=== PATIENT | male | born 1995 | race Caucasian/White ===

== ENCOUNTER 2017-01-26 10:12 | Emergency (ER) | payer MEDICAID ==
[~2017-01-26] VITALS: Ht 170.2 cm; Wt 130.0 kg
[2017-01-26 10:32] VITALS: BP 152/69
[2017-01-26] MEDS ORDERED: KETOROLAC TROMETHAMINE 60 MG/2 ML VIAL IM ONE (11:30)
== END 2017-01-26 11:59 | disposition home or self-care (01) ==
LOC: EMS 10:14
DX: S13.4XXA Sprain of ligaments of cervical spine, initial encounter (principal); X58.XXXA Exposure to other specified factors, initial encounter; Y93.89 Activity, other specified; Y92.89 Other specified places as the place of occurrence of the external cause; Y99.8 Other external cause status; I88.9 Nonspecific lymphadenitis, unspecified
CPT/HCPCS: 99283

== ENCOUNTER 2017-01-28 11:20 | Emergency (ER) | payer MEDICAID ==
[~2017-01-28] VITALS: Ht 170.2 cm; Wt 130.0 kg
[2017-01-28] MEDS ORDERED: AMOX250L PO (11:25)
[2017-01-28] MEDS ORDERED: DIAZ10 PO (11:25)
[2017-01-28 13:30] VITALS: BP 142/87
== END 2017-01-28 14:02 | disposition home or self-care (01) ==
LOC: EMS 11:22
DX: L73.9 Follicular disorder, unspecified (principal); R03.0 Elevated blood-pressure reading, without diagnosis of hypertension; M54.2 Cervicalgia
CPT/HCPCS: 99283

== ENCOUNTER 2017-01-31 19:48 | Emergency (ER) | payer MEDICAID ==
[~2017-01-31] VITALS: Ht 167.6 cm; Wt 130.0 kg
[~2017-01-31 19:48] MED LIST: AMOX250L PO; DIAZ10 PO
[2017-01-31] MEDS ORDERED: SULFAMETHOX/TRIMETH DS 800-160 MG/TABLET PO ONE (22:00)
[2017-01-31] MEDS ORDERED: KETOROLAC TROMETHAMINE 60 MG/2 ML VIAL IM ONE (22:00)
[2017-01-31] MEDS ORDERED: CEPHALEXIN MONOHYDRATE 500 MG CAPSULE PO ONE (22:00)
[2017-01-31] MEDS ORDERED: LIDOCAINE HCL 2%/EPI 1:200,000/PF 10 ML VIAL INJ ONE (22:00)
[2017-01-31 23:00] VITALS: BP 144/78
== END 2017-01-31 23:21 | disposition home or self-care (01) ==
LOC: EMS 19:49
DX: L72.3 Sebaceous cyst (principal); L02.11 Cutaneous abscess of neck; L03.221 Cellulitis of neck
CPT/HCPCS: 10060; 96372; 99283; J1885; J3490

== ENCOUNTER 2017-02-02 16:41 | Emergency (ER) | payer MEDICAID ==
[~2017-02-02] VITALS: Ht 167.6 cm; Wt 130.0 kg
[2017-02-02 17:53] VITALS: BP 127/63
== END 2017-02-02 17:53 | disposition home or self-care (01) ==
LOC: EMS 16:43
DX: Z48.00 Encounter for change or removal of nonsurgical wound dressing (principal)
CPT/HCPCS: 99283

== ENCOUNTER 2017-05-12 17:08 | Emergency (ER) | payer MEDICAID ==
[~2017-05-12] VITALS: Ht 170.2 cm; Wt 94.5 kg
[2017-05-12] MEDS ORDERED: KETOROLAC TROMETHAMINE 60 MG/2 ML VIAL IM ONE (17:45)
[2017-05-12] MEDS ORDERED: AMOXICILLIN TRIHYDRATE 250 MG CAPSULE PO ONE (17:45)
[2017-05-12 18:50] VITALS: BP 131/77
== END 2017-05-12 18:52 | disposition home or self-care (01) ==
LOC: EMS 17:12
DX: H66.92 Otitis media, unspecified, left ear (principal); J06.9 Acute upper respiratory infection, unspecified
CPT/HCPCS: 96372; 99283; J1885

== ENCOUNTER 2018-01-07 13:22 | Emergency (ER) | payer MEDICAID ==
[~2018-01-07] VITALS: Ht 172.7 cm; Wt 104.5 kg
[2018-01-07 14:43] VITALS: BP 127/84
== END 2018-01-07 15:03 | disposition home or self-care (01) ==
LOC: EMS 13:23
DX: H92.22 Otorrhagia, left ear (principal); R03.0 Elevated blood-pressure reading, without diagnosis of hypertension
CPT/HCPCS: 99281

== ENCOUNTER 2019-01-23 01:37 | Emergency (ER) | payer SELFPAY ==
[~2019-01-23] VITALS: Ht 170.2 cm; Wt 120.5 kg
[2019-01-23 03:53] LABS: INFLUENZA TYPE A NEGATIVE FOR TYPE A (NEGATIVE); INFLUENZA TYPE B NEGATIVE FOR TYPE B (NEGATIVE)
[2019-01-23 03:59] LABS: HEMOGLOBIN 16.3 g/dL (13.5-17.5); LYMPHOCYTES # (AUTO) 2.4 K/uL (1.0-4.8)
[2019-01-23 04:02] LABS: BASOPHILS % (AUTO) 0.7 % (0.0-2.0); HEMATOCRIT 46.3 % (41-53); LYMPHOCYTES % (AUTO) 21.4 % (22.0-44.0); MEAN CORPUSCULAR HEMOGLOBIN 30.6 pg (26.0-34.0); MEAN CORPUSCULAR HGB CONC 35.2 G/dL (31.0-37.0); MEAN CORPUSCULAR VOLUME 87 fL (80-100); MONOCYTES # (AUTO) 0.7 K/uL (0.1-1.0); MONOCYTES % (AUTO) 6.5 % (2.0-9.0); NEUTROPHILS # (AUTO) 7.7 K/uL (1.8-7.7); NEUTROPHILS % (AUTO) 68.4 % (40.0-70.0); PLATELET COUNT (AUTO) 207 K/uL (150-450); RED BLOOD CELL COUNT(AUTO) 5.32 MIL/uL (4.50-5.90); RED CELL DISTRIBUTION WIDTH 12.7 % (11.5-14.5)
[2019-01-23 04:04] LABS: APPEARANCE,URINE CLEAR (CLEAR); BILIRUBIN,URINE NEGATIVE (NEGATIVE); GLUCOSE, URINE (UA) >=1000 mg/dL (NEGATIVE); KETONES,URINE NEGATIVE (NEGATIVE); LEUKOCYTE ESTERASE ,URINE NEGATIVE (NEGATIVE); NITRATE,URINE NEGATIVE (NEGATIVE); OCCULT BLOOD,URINE NEGATIVE (NEGATIVE); PROTEIN,URINE SEE CONFIRM (NEGATIVE)
[2019-01-23 04:05] LABS: BACTERIA,URINE None Seen /HPF (None Seen); RBC,URINE None Seen /HPF (0-2); SQUAMOUS EPITHELIAL CELL,UR None Seen /LPF (None Seen)
[2019-01-23 04:06] LABS: SULFOSALICYLIC ACID,URINE Trace (Negative)
[2019-01-23 04:08] LABS: ANION GAP 10 mmol/L (8-16); CALCIUM, TOTAL 8.9 mg/dL (8.8-10.5); CARBON DIOXIDE 28 mmol/L (22-29); CHLORIDE 99 mmol/L (98-107); CREATININE 1.11 mg/dL (0.60-1.30); GLOMERULAR FILTR. RATE CALC > 60 mL/min (>60); GLUCOSE,RANDOM 339 mg/dL (70-110); POTASSIUM 3.5 mmol/L (3.5-5.1); SODIUM SERUM 137 mmol/L (136-145); UREA NITROGEN, BLOOD 20 mg/dL (7-18)
[2019-01-23 04:14] LABS: ALANINE AMINOTRANSFERASE 64 U/L (12-78); ALBUMIN 3.7 g/dL (3.4-5.0); ALKALINE PHOSPHATASE 132 U/L (46-116); BILIRUBIN,TOTAL 0.6 mg/dL (0.1-1.0); LIPASE 97 U/L (73-393); TOTAL PROTEIN, SERUM 7.5 g/dL (6.4-8.2)
[2019-01-23 04:28] LABS: ASPARTATE AMINOTRANSFERASE 30 U/L (15-37)
[2019-01-23] MEDS ORDERED: DiphenhydrAMINE HCL 25 MG CAPSULE PO ONE (04:30)
[2019-01-23] MEDS ORDERED: IBUPROFEN 600 MG TABLET PO ONE (04:30)
[2019-01-23] MEDS ORDERED: GuaiFENesin/D-METHORPHAN [SUGAR-FREE] 200-20MG/10 ML SYRUP UDCUP PO ONE (04:30)
[2019-01-23] MEDS ORDERED: ACETAMINOPHEN 500 MG TABLET PO ONE (04:30)
[2019-01-23 05:07] VITALS: BP 139/80
== END 2019-01-23 05:28 | disposition home or self-care (01) ==
LOC: EMS 01:37
DX: J06.9 Acute upper respiratory infection, unspecified (principal); J20.9 Acute bronchitis, unspecified; M79.10 Myalgia, unspecified site
CPT/HCPCS: 87804

== ENCOUNTER 2024-02-10 20:41 | Emergency (ER) | payer MEDICAID ==
[~2024-02-10] VITALS: Ht 167.6 cm; Wt 127.3 kg
[2024-02-10 20:44] VITALS: BP 169/102; PULSE 120; RESP 18; TEMP 98.8; O2SAT 95
[2024-02-10 20:59] LABS: COVID AG,FIA SOURCE NASAL SWAB
[2024-02-10 21:29] LABS: INFLUENZA TYPE B NEGATIVE FOR TYPE B (NEGATIVE); SARS-COV2 (COVID) ANTIGEN,FIA Negative (Negative)
[2024-02-10 21:30] LABS: INFLUENZA TYPE A POSITIVE FOR TYPE A (NEGATIVE)
[2024-02-10] MEDS ORDERED: GUAIFDM PO (22:15)
[2024-02-10] MEDS ORDERED: HYDR-4062 PO (22:15)
[2024-02-10] MEDS ORDERED: IBUP-1554 PO (22:15)
[2024-02-10] MEDS ORDERED: BENZ-227 PO (22:15)
[2024-02-10] MEDS ORDERED: METF-1211 PO (22:19)
== END 2024-02-10 22:31 | disposition home or self-care (01) ==
LOC: EMS 20:41
DX: J11.1 Influenza due to unidentified influenza virus with other respiratory manifestations (principal); E11.65 Type 2 diabetes mellitus with hyperglycemia; Z98.890 Other specified postprocedural states; Z20.822 Contact with and (suspected) exposure to COVID-19
CPT/HCPCS: 82962; 87804; 93005; 99284